=== PATIENT | female | born 1935 | race Caucasian/White ===

== ENCOUNTER → 2016-11-26 | Outpatient (CLI) | payer OTHER, MEDICAID | LOC: FIMAGING 09:24 | PROVIDERS: ATTEND Nurse Practitioner Family | DX: R50.9 Fever, unspecified (principal); J44.9 Chronic obstructive pulmonary disease, unspecified ==

== ENCOUNTER 2016-11-27 17:02 | Inpatient (IN) | payer OTHER, MEDICAID ==
[2016-11-27 16:18] LABS: CREATININE 0.8 mg/dL (0.6-1.0); GLOMERULAR FILTRATION RATE > 60
[~2016-11-27 17:02] MED LIST: IOPAMIDOL (ISOVUE 370) 100 ML BTL IV ONE
--- NOTE | 2016-11-27 17:16 | EDPHY ---
H & P Time Seen by Provider: 11/27/16 17:14 HPI/ROS: CHIEF COMPLAINT: Shortness of breath, pulmonary embolism on CT scan HISTORY OF PRESENT ILLNESS: Called by Dr. Frausto at 5:00 p.m. prior to arrival , has moderate volume bilateral pulmonary emboli on CT scan. Patient has been feeling quite fatigued and decreased energy per the daughter for the last 3 weeks. She developed a bladder infection with fever and chills a week ago. She has been really spending a lot more time in bed, maybe at least 16 hours a day. Over the past week she became more short of breath, worse with exertion, not associated with chest pain, symptoms moderate. She had an elevated D-dimer and her primary care physician ordered a CT pulmonary arteriogram which showed moderate volume bilateral pulmonary emboli. Of note the patient does not have a family history of PE, no recent travel, no history of cancer. REVIEW OF SYSTEMS: Eye: no change in vision ENT: no sore throat Cardiac: no chest pain or syncope Pulmonary: HPI Abdomen: no vomiting, diarrhea, abdominal pain Musculoskeletal: no back pain Skin: no rash Neuro: no headache Constitutional: Subjective fever and chills over the past week : HPI, urinary symptoms improving A comprehensive 10 point review of systems is otherwise negative aside from elements mentioned in the history of present illness. PAST MEDICAL HISTORY: Partial hysterectomy, hypothyroid Social history: No recent travel or immobilization, no family history of venous thromboembolism. Nonsmoker. General Appearance: Alert and conversant, cooperative. Eyes: No scleral icterus. ENT, Mouth: Normal mucous membranes. Respiratory: Normal respiratory effort, breath sounds equal, lungs are clear to auscultation. Cardiovascular: Regular rate and rhythm. Gastrointestinal: Abdomen is soft and non tender. Neurological: Alert and oriented x3. Normally conversant. Face symmetric, normal movement and sensation in all extremities. Skin: Warm and dry, no rashes. Musculoskeletal: No peripheral edema and no joint swelling. No calf tenderness Psychiatric: Not agitated. Emergency Department course/MDM: Patient's heart rate 101. Lovenox 1 milligram/kilogram subcutaneous. Admission to the hospital for further evaluation and monitoring with new diagnosis of pulmonary embolism. Smoking Status: Never smoked Constitutional: Initial Vital Signs Temperature (C) 36.5 C 11/27/16 17:05 Heart Rate 101 H 04/04/17 17:05 Respiratory Rate 18 11/27/16 17:05 Blood Pressure 170/93 H 11/27/16 17:05 O2 Sat (%) 94 11/27/16 17:05 O2 Delivery Mode Room Air Allergies/Adverse Reactions: No Known Allergies Allergy (Unverified 11/27/16 17:10) Home Medications: Medication Instructions Recorded Levothyroxine [Synthroid 50 mcg 50 mcg PO DAILY06 11/27/16 (*)] Medical Decision Making - Diagnostics EKG Interpretation: 12-lead EKG interpreted by me; official reading is in trace master. My interpretation is sinus rhythm rate 89 no ischemic changes. Imaging: CT per Dr. Lj Frausto shows moderate volume bilateral pulmonary embolism. Differential Diagnosis: Differential diagnosis considered for shortness of breath including but not limited to pulmonary infectious process, COPD, asthma, pulmonary embolus and congestive heart failure. Consult/Admit Bed Type: [place] [address] - Data Points Laboratory Results: Laboratory Results 11/27/16 17:30 11/27/16 17:30 11/27/16 11/27/16 11/27/16 17:30 17:30 17:30 WBC 7.53 10^3/uL 10^3/uL (3.80-9.50) RBC 4.24 10^6/uL 10^6/uL (4.18-5.33) Hgb 13.5 g/dL g/dL (12.6-16.3) Hct 39.3 % % (38.0-47.0) MCV 92.7 fL fL (81.5-99.8) MCH 31.8 pg pg (27.9-34.1) MCHC 34.4 g/dL g/dL (32.4-36.7) RDW 12.0 % % (11.5-15.2) Plt Count 349 10^3/uL 10^3/uL (150-400) MPV 9.9 fL fL (8.7-11.7) Neut % (Auto) 66.1 % % (39.3-74.2) Lymph % (Auto) 23.5 % % (15.0-45.0) [place] % (Auto) 8.5 % % (4.5-13.0) Eos % (Auto) 1.1 % % (0.6-7.6) Baso % (Auto) 0.4 % % (0.3-1.7) Nucleat RBC Rel Count 0.0 % % (0.0-0.2) Absolute Neuts (auto) 4.98 10^3/uL 10^3/uL (1.70-6.50) Absolute Lymphs (auto) 1.77 10^3/uL 10^3/uL (1.00-3.00) Absolute Monos (auto) 0.64 10^3/uL 10^3/uL (0.30-0.80) Absolute Eos (auto) 0.08 10^3/uL 10^3/uL (0.03-0.40) Absolute Basos (auto) 0.03 10^3/uL 10^3/uL (0.02-0.10) Absolute Nucleated RBC 0.00 10^3/uL 10^3/uL (0-0.01) Immature Gran % 0.4 % % (0.0-1.1) Immature Gran # 0.03 10^3/uL 10^3/uL (0.00-0.10) PT 13.5 SEC SEC (12.0-15.0) INR 1.04 (0.83-1.16) APTT 22.6 SEC L SEC (23.0-38.0) Sodium 141 mEq/L mEq/L (134-144) Potassium 3.9 mEq/L mEq/L (3.5-5.2) Chloride 108 mEq/L mEq/L (97-110) Carbon Dioxide 21 mEq/l L mEq/l (22-31) Anion Gap 12 mEq/L mEq/L (8-16) BUN 9 mg/dL mg/dL (7-23) Creatinine 0.7 mg/dL mg/dL (0.6-1.0) Estimated GFR > 60 Glucose 104 mg/dL H mg/dL (70-100) Calcium 9.4 mg/dL mg/dL (8.5-10.4) Troponin I 0.013 ng/mL ng/mL (0-0.034) NT-Pro-B Natriuret Pep 224 pg/mL pg/mL (0-450) 11/27/16 16:02 WBC RBC Hgb Hct MCV MCH MCHC RDW Plt Count MPV Neut % (Auto) Lymph % (Auto) [place] % (Auto) Eos % (Auto) Baso % (Auto) Nucleat RBC Rel Count Absolute Neuts (auto) Absolute Lymphs (auto) Absolute Monos (auto) Absolute Eos (auto) Absolute Basos (auto) Absolute Nucleated RBC Immature Gran % Immature Gran # PT INR APTT Sodium Potassium Chloride Carbon Dioxide Anion Gap BUN Creatinine 0.8 mg/dL mg/dL (0.6-1.0) Estimated GFR > 60 Glucose Calcium Troponin I NT-Pro-B Natriuret Pep Medications Given: Discontinued Medications Enoxaparin Sodium (Lovenox) 50 mg SC EDNOW ONE Stop: 11/27/16 17:39 Last Admin: 11/27/16 18:30 Dose: 50 mg Departure - Departure Disposition: [facility] Inpatient Acute Clinical Impression: Pulmonary embolism Qualifiers: Pulmonary embolism type: other Chronicity: acute Acute cor pulmonale presence: without acute cor pulmonale Qualified Code(s): I26.99 - Other pulmonary embolism without acute cor pulmonale Condition: Fair
[2016-11-27] MEDS ORDERED: ENOXAPARIN 60 MG/0.6 ML SYR SC ONE (17:38)
[2016-11-27 17:46] LABS: % IMMATURE GRANULYOCYTES 0.4 % (0.0-1.1); ABSOLUTE IMMATURE GRANULOCYTES 0.03 10^3/uL (0.00-0.10); ADD DIFF? NO; ADD MORPH? NO; ADD SCAN? NO; ATYPICAL LYMPHOCYTE FLAG 10 (0-99); FRAGMENT RBC FLAG 0 (0-99); HEMATOCRIT 39.3 % (38.0-47.0); HEMOGLOBIN 13.5 g/dL (12.6-16.3); LEFT SHIFT FLG 0 (0-99); LIPEMIA HEMOLYSIS FLAG 90 (0-99); MEAN CELL HEMOGLOBIN 31.8 pg (27.9-34.1); MEAN CELL HEMOGLOBIN CONCENTR. 34.4 g/dL (32.4-36.7); MEAN CELL VOLUME 92.7 fL (81.5-99.8); MEAN PLATELET VOLUME 9.9 fL (8.7-11.7); PLATELET CLUMPS FLAG 0 (0-99); PLATELET COUNT 349 10^3/uL (150-400); RED BLOOD CELL COUNT 4.24 10^6/uL (4.18-5.33)
[2016-11-27 17:50] LABS: APTT 22.6 SEC (23.0-38.0); INR 1.04 (0.83-1.16); PROTIME(PATIENT) 13.5 SEC (12.0-15.0)
[2016-11-27 18:02] LABS: ANION GAP 12 mEq/L (8-16); CALCIUM 9.4 mg/dL (8.5-10.4); CARBON DIOXIDE 21 mEq/l (22-31); CHLORIDE 108 mEq/L (97-110); CREATININE 0.7 mg/dL (0.6-1.0); GLOMERULAR FILTRATION RATE > 60; GLUCOSE 104 mg/dL (70-100); POTASSIUM 3.9 mEq/L (3.5-5.2); SODIUM 141 mEq/L (134-144)
[2016-11-27 18:14] LABS: TROPONIN I 0.013 ng/mL (0-0.034)
--- NOTE | 2016-11-27 18:24 | CPEKG ---
Heart Rate: 89 RR Interval: 674 P-R Interval: 192 QRSD Interval: 76 QT Interval: 360 QTC Interval: 439 P Inez: 48 QRS Inez: 1 T Wave Inez: 51 EKG Severity - NORMAL ECG - EKG Impression: SINUS RHYTHM Electronically Signed By: Armin Burkett 27-Nov-2016 18:27:24
[2016-11-27] MEDS ORDERED: ONDANSETRON 4 MG/2 ML VIAL IVP PRN (19:30)
[2016-11-27] MEDS ORDERED: ACETAMINOPHEN 325 MG TAB PO PRN (19:30)
[2016-11-27] MEDS ORDERED: ONDANSETRON DISINTEGRATING 4 MG TAB PO PRN (19:30)
[2016-11-27] MEDS ORDERED: NS 1,000 ML IV SCH (20:00)
--- NOTE | 2016-11-27 22:26 | GHP ---
[f rep st] HISTORY AND PHYSICAL DATE OF ADMISSION: 11/27/2016 CHIEF COMPLAINT: Fatigue, acute pulmonary embolism. HISTORY OF PRESENT ILLNESS: Patient is a 81-year-old female with history of hypothyroidism, who was recently treated for a urinary tract infection 2 weeks ago. She presented today for persistent weakness and wooziness. In regard to her urinary symptoms, she says that improved but she still feels very ill. She has been sleeping up to 18 hours a day. Can barely get out of bed. She has had some increased shortness of breath. No overt chest pain. She denies fevers , chills or sweats. No nausea, vomiting, or diarrhea. No recent travel. Recently seen by her PCP and had her Synthroid adjusted due to low TSH. REVIEW OF SYSTEMS: A complete 10-point review of systems negative except as noted in HPI. PAST MEDICAL HISTORY: Hypothyroidism. PAST SURGICAL HISTORY: Hysterectomy. FAMILY HISTORY: Mother, father and brother all of MIs. SOCIAL HISTORY: Lives at [facility]. No illicits. She has a daughter who lives close by. ALLERGIES: No known drug allergies. MEDICATIONS: Levothyroxine 50 mcg. PHYSICAL EXAM: VITAL SIGNS: Temperature 37.3, blood pressure 153/77, heart rate 90, respirations 18, 92% on room air. GENERAL: Patient appears very fatigued, pale, but pleasant. HEENT: PERRLA. EOMI. Oropharynx clear. Mildly dry mucous membranes. CV: Regular rate and rhythm. No murmurs, gallops , rubs. LUNGS: Clear to auscultation bilaterally. ABDOMEN: Soft, nontender, nondistended. Positive bowel sounds. : No suprapubic Lui tenderness. MUSCULOSKELETAL: 5/5 upper and lower extremity strength, just generally weak. NEURO: 2 through 12 intact. PSYCH: Alert and oriented x3. LABS: WBC 7, hemoglobin 13, hematocrit 39, platelets 349. INR 1.04, PT is 13.5. Sodium 141, potassium 3.9, chloride 108, carbon dioxide 21, BUN 9, creatinine 0.7, glucose 104, calcium 9.4, troponin 0.013. BNP is 224. EKG is personally reviewed by me. Normal sinus rhythm. CTA: Moderate volume of acute thrombo-pulmonary embolic disease involving right and left lower lobes and right middle lobe. No evidence of right heart strain. Clear . No pneumonia or edema. Trace right basilar atelectasis. ASSESSMENT AND PLAN: 1. Acute pulmonary embolism: Suspect this may be due to being ill over the last couple weeks. There is no history of clots in her family. We will treat with Lovenox this evening. I have discussed oral options including Xarelto or Coumadin, and she wants to think about this evening. 2. Severe fatigue: She states she has improved as far as her urinary symptoms and has been afebrile, and no other infectious symptoms. Repeat UA, influenza. Her low TSH may be contributing to her symptoms; levothyroxine was decreased today by her PCP. 3. Mild metabolic acidosis: Likely secondary to decreased p.o. intake. We will give gentle fluids. 4. Hypothyroidism: On Synthroid. 5. Deep venous thrombosis prophylaxis: On Lovenox. 6. Diet: Regular. 7. We will have Physical Therapy and Occupational Therapy evaluate. DISPOSITION: Patient warrants observation admission given fatigue and new PEs warranting anticoagulation. /[id number]/MODL MTDD
[2016-11-27] MEDS: ENOXAPARIN 60 MG/0.6 ML SYR SC SCH (22:37)
[2016-11-28 00:54] LABS: COLOR YELLOW; LEUKOCYTE ESTERASE,URINE 1+ (NEGATIVE); NITRITE,URINE NEGATIVE (NEGATIVE)
[2016-11-28] MEDS: LEVOTHYROXINE 50 MCG TAB PO SCH (05:01)
[2016-11-28 05:42] LABS: CALCIUM 8.8 mg/dL (8.5-10.4); CARBON DIOXIDE 21 mEq/l (22-31); CHLORIDE 112 mEq/L (97-110); CREATININE 0.7 mg/dL (0.6-1.0); GLOMERULAR FILTRATION RATE > 60; GLUCOSE 106 mg/dL (70-100); POTASSIUM 3.9 mEq/L (3.5-5.2)
[2016-11-28 06:17] LABS: ANION GAP 8 mEq/L (8-16); SODIUM 141 mEq/L (134-144)
[2016-11-28] MEDS: ENOXAPARIN 60 MG/0.6 ML SYR SC SCH ×2 (10:32→22:53)
--- NOTE | 2016-11-28 12:53 | HOSPPROG ---
Hospitalist Progress Note Assessment/Plan: * Acute PE -still very SOB/CP/fatigue -continue inpatient treatment until feeling better -SubQ Lovenox - will likely transition to Xarelto at discharge * Hypothyroidism -recent Synthroid dose adjustment This is my first visit with Ms. Schmid Subjective: Chest pain today - thinks she had it yesterday but she was feeling so bad she didn't realize it. Legs feel great but her upper body feels ill. Objective: Vital Signs Temp Pulse Resp BP Pulse Ox 36.6 C 72 18 154/68 H 98 11/28/16 12:16 11/28/16 12:16 11/28/16 12:16 11/28/16 12:16 11/28/16 12:16 Laboratory Results 11/28/16 04:55 11/27/16 11/28/16 11/29/16 05:59 05:59 05:59 Intake Total 1150 100 Output Total 1000 Balance 1150 -900 PT 13.5 SEC (12.0-15.0) 11/27/16 17:30 INR 1.04 (0.83-1.16) 11/27/16 17:30 CTA chest : + PE tele : NSR - Physical Exam Constitutional: no apparent distress, appears nourished, not in pain Cardiovascular: regular rate and rhythym, no murmur, rub, or gallop Respiratory: no respiratory distress, no rales or rhonchi, clear to auscultation Gastrointestinal: normoactive bowel sounds, soft, non-tender abdomen, no palpable masses Skin: no rashes or abrasions, no fluctuance, no induration Neurologic: AAOx3, sensation intact bilaterally Psychiatric: interacting appropriately, not anxious, not encephalopathic, thought process linear ICD10 Worksheet Patient Problems: Problems Problem Status Onset Pulmonary embolism Acute
[2016-11-29 03:33] VITALS: RESP 18
[2016-11-29 08:14] VITALS: BP 131/58; PULSE 68; TEMP 97.4; O2SAT 98
[2016-11-29] MEDS: ENOXAPARIN 60 MG/0.6 ML SYR SC SCH (08:15)
[2016-11-29] MEDS: LEVOTHYROXINE 50 MCG TAB PO SCH (08:18)
--- NOTE | 2016-11-29 11:30 | PDIAF ---
- Diagnosis Diagnosis: PE Code Status: Full Code - Medication Management Discharge Medications: Medications to Continue on Transfer Levothyroxine [Synthroid 50 mcg (*)] 50 mcg PO DAILY06 11/27/16 [Last Taken 12/10] Apixaban [Eliquis] 5 mg PO BID #74 tablet 11/29/16 [Last Taken Unknown] Discharge Medications: Refer to the Discharge Home Medication list for PRN reason. - Orders Services needed: Home Care, Registered Nurse, Physical Therapy, Occupational Therapy Home Care Face to Face: I certify that this patient was under my care and that I had the required [id number] encounter meeting the encounter requirements on the discharge day. My findings support the fact that the patient is homebound as defined in CMS Chapter 7 Medicare Benefits Manual 30.1.1, The condition of the patient is such that there exists a normal inability to leave home and consequently, leaving home would require a considerable and taxing effort. Diet Recommendation: no restrictions on diet - Follow Up Care Current Providers and Referrals: Patient,NotPresent [Unknown] - As per Instructions
--- NOTE | 2016-11-29 20:22 | GDS ---
[f rep st] DISCHARGE SUMMARY DISCHARGE DIAGNOSES: 1. Acute pulmonary embolus 2. Hypothyroidism. HISTORY: The patient is a very active 81-year-old female, who presented with profound fatigue. Her primary care doctor eventually did workup for pulmonary embolus, which was found to be positive with moderate volume, right-sided PE. She was admitted to the hospital and was quite stable throughout her stay. She was started on Lovenox, but did decide to go with a novel oral anticoagulant, and was discharged with Eliquis. She was weaned off oxygen. She did well with physical therapy. DISCHARGE MEDICATIONS: Please see computer record for full detailed list. New medications: Eliquis 10 mg p.o. b.i.d. for 1 week and then decrease to 5 mg p.o. b.i.d. thereafter. Greater than 30 minutes' time was spent arranging this discharge. Patient seen and examined by me on the day of discharge. /[id number]/MODL MTDD
[2016-11-29] MEDS ORDERED: APIXABAN 5 MG TAB PO SCH (21:00)
== END 2016-11-29 12:30 | disposition home health service (06) | DRG 176 ==
LOC: INTOOBSV 17:39 → EDSTATUS 18:00 → F2W 18:36 → OBSVTOIN 11-28 12:48
PROVIDERS: ADMIT Internal Medicine; ATTEND Internal Medicine
DX: I26.99 Other pulmonary embolism without acute cor pulmonale (principal); E87.2 Acidosis; E03.9 Hypothyroidism, unspecified
CPT/HCPCS: 97161-GP; 97165-GO; 97535-GO; G0378; G8978-GP-CH; G8979-GP-CH; G8980-GP-CH; G8987-GO-CJ; G8988-GO-CI; J1650; Q9967

== ENCOUNTER 2017-03-05 11:45 | Emergency (ER) | payer OTHER, MEDICAID ==
[2017-03-05 11:52] VITALS: TEMP 98.2
[2017-03-05] MEDS ORDERED: NS 1,000 ML IV ONE (12:10)
[2017-03-05 12:17] LABS: % IMMATURE GRANULYOCYTES 0.5 % (0.0-1.1); ABSOLUTE IMMATURE GRANULOCYTES 0.04 10^3/uL (0.00-0.10); ADD DIFF? NO; ADD MORPH? NO; ADD SCAN? NO; ATYPICAL LYMPHOCYTE FLAG 0 (0-99); FRAGMENT RBC FLAG 0 (0-99); HEMATOCRIT 40.8 % (38.0-47.0); HEMOGLOBIN 14.2 g/dL (12.6-16.3); LEFT SHIFT FLG 0 (0-99); LIPEMIA HEMOLYSIS FLAG 90 (0-99); MEAN CELL HEMOGLOBIN 31.8 pg (27.9-34.1); MEAN CELL HEMOGLOBIN CONCENTR. 34.8 g/dL (32.4-36.7); MEAN CELL VOLUME 91.5 fL (81.5-99.8); MEAN PLATELET VOLUME 9.3 fL (8.7-11.7); PLATELET CLUMPS FLAG 0 (0-99); PLATELET COUNT 412 10^3/uL (150-400); RED BLOOD CELL COUNT 4.46 10^6/uL (4.18-5.33); RED CELL DISTRIBUTION WIDTH 15.2 % (11.5-15.2)
--- NOTE | 2017-03-05 12:26 | EDPHY ---
H & P Time Seen by Provider: 03/05/17 12:10 HPI/ROS: CHIEF COMPLAINT: Blood in stools, fatigue HISTORY OF PRESENT ILLNESS: 81-year-old female on Eliquis for recent pulmonary embolism presents with blood in stools and fatigue. 2 weeks ago, she had some beets and the following day noticed some reddish discoloration in the toilet water after a BM. She thought it might be because of the beets so she did not become concerned. Since then, she continues to have normal BM's, with pinkish discoloration around the BM's. Associated with fatigue. No associated abdominal pain, nausea or vomiting. No previous history of GI hemorrhage. REVIEW OF SYSTEMS: Constitutional: No fever, no chills Eyes: No visual changes ENT: No sore throat Respiratory: No cough, no shortness of breath Cardiac: No chest pain Genitourinary: no dysuria Musculoskeletal: No leg pain or swelling Skin: No rash Neurological: No headache Psychiatric: No depression Past Medical/Surgical History: Pulmonary embolism Smoking Status: Never smoked Physical Exam: General Appearance: Alert, pleasant Eyes: Pupils equal and round, no conjunctival pallor ENT, Mouth: Mucous membranes moist Neck: Normal inspection Respiratory: Lungs are clear to auscultation Cardiovascular: Regular rate and rhythm Gastrointestinal: Abdomen is soft and nontender Rectal: External hemorrhoids, no stool or blood present Neurological: A&O, nonfocal, normal gait Skin: Warm and dry, no rash Extremities: Nontender, no pedal edema Psychiatric: Mood and affect normal Constitutional: Initial Vital Signs Temperature (C) 36.8 C 03/05/17 11:47 Heart Rate 75 03/05/17 11:47 Respiratory Rate 20 03/05/17 11:47 Blood Pressure 119/50 L 03/05/17 11:47 O2 Sat (%) 94 03/05/17 11:47 O2 Delivery Mode Room Air Allergies/Adverse Reactions: No Known Allergies Allergy (Verified 03/05/17 11:46) Home Medications: Medication Instructions Recorded Levothyroxine [Synthroid 50 mcg 50 mcg PO DAILY06 11/27/16 (*)] Apixaban [Eliquis] 5 mg PO BID #74 tablet 11/29/16 Medical Decision Making ED Course/Re-evaluation: Clinical presentation concerning for acute GI hemorrhage. However, rectal exam reveals no obvious blood and hematocrit is normal. There is no evidence of GI hemorrhage. I feel that this patient is safe and stable for discharge home with prompt outpatient GI follow-up. Differential Diagnosis: Includes does not limited to bleeding hemorrhoid, anal fissure, lower GI bleed, AVM, diverticular bleed, upper GI bleed. - Data Points Laboratory Results: Laboratory Results 03/05/17 12:00 03/05/17 03/05/17 03/05/17 12:15 12:00 12:00 WBC 8.76 10^3/uL 10^3/uL (3.80-9.50) RBC 4.46 10^6/uL 10^6/uL (4.18-5.33) Hgb 14.2 g/dL g/dL (12.6-16.3) Hct 40.8 % % (38.0-47.0) MCV 91.5 fL fL (81.5-99.8) MCH 31.8 pg pg (27.9-34.1) MCHC 34.8 g/dL g/dL (32.4-36.7) RDW 15.2 % % (11.5-15.2) Plt Count 412 10^3/uL H 10^3/uL (150-400) MPV 9.3 fL fL (8.7-11.7) Neut % (Auto) 70.4 % % (39.3-74.2) Lymph % (Auto) 22.9 % % (15.0-45.0) [place] % (Auto) 5.4 % % (4.5-13.0) Eos % (Auto) 0.5 % L % (0.6-7.6) Baso % (Auto) 0.3 % % (0.3-1.7) Nucleat RBC Rel Count 0.0 % % (0.0-0.2) Absolute Neuts (auto) 6.17 10^3/uL 10^3/uL (1.70-6.50) Absolute Lymphs (auto) 2.01 10^3/uL 10^3/uL (1.00-3.00) Absolute Monos (auto) 0.47 10^3/uL 10^3/uL (0.30-0.80) Absolute Eos (auto) 0.04 10^3/uL 10^3/uL (0.03-0.40) Absolute Basos (auto) 0.03 10^3/uL 10^3/uL (0.02-0.10) Absolute Nucleated RBC 0.00 10^3/uL 10^3/uL (0-0.01) Immature Gran % 0.5 % % (0.0-1.1) Immature Gran # 0.04 10^3/uL 10^3/uL (0.00-0.10) Sodium Pending Potassium Pending Chloride Pending Carbon Dioxide Pending Anion Gap Pending BUN Pending Creatinine Pending Estimated GFR Pending Glucose Pending Calcium Pending Stool Occult Bld Scrn NEGATIVE (NEGATIVE) Departure - Departure Disposition: Home, Routine, Self-Care Clinical Impression: Hemorrhoids, external Condition: Good Instructions: Hemorrhoids (ED), Rectal Bleeding (ED) Referrals: Sussy Vu MD [Primary Care Provider] - 1-2 days without fail
[2017-03-05 12:42] LABS: ANION GAP 14 mEq/L (8-16); CALCIUM 10.3 mg/dL (8.5-10.4); CARBON DIOXIDE 20 mEq/l (22-31); CHLORIDE 105 mEq/L (97-110); CREATININE 0.9 mg/dL (0.6-1.0); GLOMERULAR FILTRATION RATE > 60; GLUCOSE 90 mg/dL (70-100); POTASSIUM 4.8 mEq/L (3.5-5.2); SODIUM 139 mEq/L (134-144)
[2017-03-05 13:30] VITALS: BP 135/70; PULSE 63; RESP 16; O2SAT 92
== END 2017-03-05 13:29 | disposition home or self-care (01) ==
DX: K64.4 Residual hemorrhoidal skin tags (principal); E86.9 Volume depletion, unspecified

== ENCOUNTER → 2017-10-09 | Outpatient (CLI) | payer OTHER, MEDICAID ==
[~2017-10-09] MED LIST changes: -IOPAMIDOL (ISOVUE 370) 100 ML BTL IV ONE; +IOPAMIDOL (ISOVUE-300) 100 ML BTL ONE
== END ==
LOC: FIMAGING 13:00
PROVIDERS: ATTEND Internal Medicine Gastroenterology
DX: K44.9 Diaphragmatic hernia without obstruction or gangrene (principal); I70.8 Atherosclerosis of other arteries
CPT/HCPCS: 74177; Q9967

== ENCOUNTER → 2018-02-18 | Outpatient (CLI) | payer OTHER, MEDICAID ==
[~2018-02-18] MED LIST changes: +IOPAMIDOL (ISOVUE 370) 100 ML BTL IV ONE; -IOPAMIDOL (ISOVUE-300) 100 ML BTL ONE
== END ==
LOC: CIMAGING 12:56
PROVIDERS: ATTEND Family Medicine
DX: I70.0 Atherosclerosis of aorta (principal); I25.10 Atherosclerotic heart disease of native coronary artery without angina pectoris; M48.54XA Collapsed vertebra, not elsewhere classified, thoracic region, initial encounter for fracture; J84.10 Pulmonary fibrosis, unspecified; K44.9 Diaphragmatic hernia without obstruction or gangrene; Z86.711 Personal history of pulmonary embolism
CPT/HCPCS: 71275; Q9967

== ENCOUNTER → 2018-07-25 | Outpatient (CLI) | payer OTHER, MEDICAID ==
--- NOTE | 2018-07-25 14:38 | CPEEG ---
DATE OF STUDY: 07/25/2018 INTERPRETATION: Normal EEG during wakefulness and drowsiness. There were no potentially epileptogen ic abnormalities present during the recording. REPORT: This EEG contains 10 Hz alpha activity to the posterior head regions. There was no abnormal activation at rest, during photic stimulation or hyperventilation. The patient intermittently becam e briefly drowsy during the study. There was no abnormal activation during drowsiness or during time s of arousal. /[id number]/MODL
== END ==
LOC: FCPNEURO 11:53
PROVIDERS: ATTEND Physician Assistant Medical
DX: R56.9 Unspecified convulsions (principal)

== ENCOUNTER → 2018-08-02 | Outpatient (CLI) | payer OTHER, MEDICAID | LOC: FIMAGING 13:14 | PROVIDERS: ATTEND Physician Assistant Medical | DX: R56.9 Unspecified convulsions (principal) ==

== ENCOUNTER → 2018-09-09 | Outpatient (CLI) | payer OTHER, MEDICAID | LOC: FIMAGING 13:23 | PROVIDERS: ATTEND Internal Medicine Critical Care Medicine | DX: J98.4 Other disorders of lung (principal) | CPT/HCPCS: 71275; Q9967; 82565-PO ==

== ENCOUNTER → 2018-11-03 | Outpatient (CLI) | payer OTHER, MEDICAID | LOC: FIMAGING 10:09 | PROVIDERS: ATTEND Surgery | DX: I75.022 Atheroembolism of left lower extremity (principal); I77.1 Stricture of artery | CPT/HCPCS: 75635; Q9967 ==